=== PATIENT | male | born 1945 | race Caucasian/White ===

== ENCOUNTER 2017-12-23 11:52 | Inpatient (IN) | payer OTHER ==
[2017-12-23] VITALS (8 sets, daily range): BP systolic 104–136; BP diastolic 52–72
[~2017-12-23] VITALS: Ht 177.8 cm; Wt 92.8 kg
--- NOTE | ~2017-12-23 | EKG ---
[place] [address] [place] [address] ELECTROCARDIOGRAM REPORT Name: INGRID RANDALL Room #: 211-P ADM IN M.R.#: [id number] Admission: 12/23/17 Attend Phys: Sally Simons Discharge: Date of : 47 Report #: [id number] THIS REPORT FOR: //name// [facility] ED Test Date: 2017-12-23 Test Time: 12:48:10 Pat Name: INGRID RANDALL Department: Room: 211 Gender: M Presiding Steward: KIMBERLEE : 1945 Requested By: Regis Mcadams Order Number: [id number] MD: Mauro Hung Measurements Intervals [place] Rate: 96 P: 67 OK: 144 QRS: -55 QRSD: 148 T: 87 QT: 354 QTc: 448 Interpretive Statements Sinus rhythm RBBB and LAFB Baseline wander in lead(s) V2 No previous ECG available for comparison Electronically Signed On 12-23-2017 17:08:08 CDT by Mauro Hung [email or web address] <ELECTRONICALLY SIGNED> By: Mauro Hung MD, [facility] 12/23/17 1708 1248 1248 Mauro Hung MD, FACC /EPI
[2017-12-23 12:55] LABS: BASOPHILS 0.8 % (0.0-2.0); EOSINOPHILS 0.7 % (0.0-3.0)
[2017-12-23 12:58] LABS: ABSOLUTE NEUTROPHILS 9.4 thou/uL (1.4-8.2); LYMPHOCYTES 15.6 % (24.0-44.0); MCH 25.1 pg (26.0-34.0); MCV 78.4 fL (80.0-100.0); MONOCYTES 5.7 % (1.0-8.0); PLATELET COUNT 338 thou/uL (150-400); POLYS 77.2 % (36.0-66.0); RDW 21.9 % (10.5-14.5); WBC 12.2 thou/uL (4.0-11.0)
[2017-12-23 13:00] LABS: HEMATOCRIT 17.3 % (42.0-52.0); HEMOGLOBIN 5.5 gm/dL (14.0-18.0)
[2017-12-23] MEDS ORDERED: DIOVAN HCT 3201 EACH PO (13:02)
[2017-12-23] MEDS ORDERED: ZOCOR20 MG PO (13:02)
[2017-12-23] MEDS ORDERED: FLOMAX0.4 MG PO (13:03)
[2017-12-23 13:04] LABS: ANION GAP 8 mmol/L (7-16); BUN 72 mg/dL (7-18); CALCIUM 10.9 mg/dL (8.5-10.1); CHLORIDE 101 mmol/L (98-107); CO2 26 mmol/L (21-32); GLUCOSE 122 mg/dL (74-106); SODIUM 135 mmol/L (136-145)
[2017-12-23] MEDS ORDERED: OXYCODONE HCL 55 MG PO (13:04)
[2017-12-23] MEDS ORDERED: DOCUPRENE100 MG PO (13:04)
[2017-12-23] MEDS ORDERED: ZOFRAN ODT4 M1 PO (13:05)
[2017-12-23] MEDS ORDERED: VOLTAREN GEL 1100 G2 TOP (13:08)
[2017-12-23] MEDS ORDERED: CARVEDILOL3.125 MG PO (13:09)
[2017-12-23] MEDS ORDERED: XARELTO10 MG PO (13:09)
[2017-12-23] MEDS ORDERED: TYLENOL325 MG PO (13:10)
[2017-12-23] MEDS ORDERED: ST. JOSEPH ASPI81 MG PO (13:10)
[2017-12-23] MEDS ORDERED: PROSCAR 5MG TABL5 MG PO (13:11)
[2017-12-23] MEDS ORDERED: ACIDOPHILUS1 EAC2 PO (13:11)
[2017-12-23] MEDS ORDERED: CENTRUM SILVER1 EAC2 PO (13:11)
[2017-12-23] MEDS ORDERED: VITAMINC500 PO (13:12)
[2017-12-23 13:13] LABS: ALBUMIN 2.6 g/dL (3.4-5.0); SGOT 18 U/L (15-37); SGPT 24 U/L (30-65); TOTAL BILIRUBIN 0.2 mg/dL (<0.1-1.0); TOTAL PROTEIN 7.2 g/dL (6.4-8.2); TROPONIN-I < 0.04 ng/mL (<0.06)
[2017-12-23] MEDS ORDERED: CRANBERRY 6,001 EACH PO (13:16)
[2017-12-23] MEDS ORDERED: PURELAX510 GM PO (13:18)
[2017-12-23 14:31] LABS: OBSERVED RETIC COUNT 2.52 % (0.6-2.6)
[2017-12-23 14:36] LABS: % SATURATION 26 % (20-39); IRON 62 ug/dL (65-175); TIBC 240 ug/dL (250-450)
[2017-12-24] VITALS (9 sets, daily range): BP systolic 130–157; BP diastolic 59–91
[2017-12-24 00:18] LABS: WBC 9.7 thou/uL (4.0-11.0)
[2017-12-24 00:20] LABS: MCH 26.8 pg (26.0-34.0); MCHC 33.2 g/dL (28.0-37.0); MCV 80.5 fL (80.0-100.0); RBC 2.24 mil/uL (4.50-6.00); RDW 19.2 % (10.5-14.5)
[2017-12-24 09:58] LABS: HEMATOCRIT 24.3 % (42.0-52.0); HEMOGLOBIN 8.4 gm/dL (14.0-18.0)
[2017-12-25 04:18] LABS: PROTIME 10.3 Seconds (9.3-11.4)
[2017-12-25 04:33] LABS: HEMATOCRIT 22.3 % (42.0-52.0); HEMOGLOBIN 7.6 gm/dL (14.0-18.0)
[2017-12-25 04:35] LABS: ALBUMIN 2.3 g/dL (3.4-5.0)
[2017-12-25 05:31] VITALS: BP 142/74
[2017-12-25 07:49] VITALS: BP 147/84
[2017-12-25 10:43] LABS: CALCIUM 10.2 mg/dL (8.5-10.1); CREATININE 1.6 mg/dL (0.7-1.3); POTASSIUM 4.4 mmol/L (3.5-5.1)
[2017-12-25 15:45] VITALS: BP 134/63
[2017-12-25 19:59] VITALS: BP 118/60
[2017-12-26 07:33] LABS: HEMATOCRIT 21.9 % (42.0-52.0); HEMOGLOBIN 7.5 gm/dL (14.0-18.0); MCHC 34.5 g/dL (28.0-37.0); RBC 2.6 mil/uL (4.50-6.00); RDW 18.1 % (10.5-14.5); WBC 7.1 thou/uL (4.0-11.0)
[2017-12-26 07:46] LABS: CALCIUM 9.9 mg/dL (8.5-10.1); CREATININE 1.7 mg/dL (0.7-1.3); POTASSIUM 4.1 mmol/L (3.5-5.1)
[2017-12-26 08:15] VITALS: BP 152/77
[2017-12-26 10:07] VITALS: BP 152/77
[2017-12-26 20:00] VITALS: BP 137/72
[2017-12-27 07:40] LABS: HEMATOCRIT 22.7 % (42.0-52.0); HEMOGLOBIN 7.7 gm/dL (14.0-18.0); MCH 28.8 pg (26.0-34.0); MCHC 33.8 g/dL (28.0-37.0); MCV 85.3 fL (80.0-100.0); RBC 2.66 mil/uL (4.50-6.00); RDW 18.1 % (10.5-14.5); WBC 9.2 thou/uL (4.0-11.0)
[2017-12-27 08:07] VITALS: BP 172/82
[2017-12-27 10:17] VITALS: BP 156/77
== END 2017-12-27 11:10 | disposition home health service (06) | DRG 377 ==
LOC: ER 11:52 → EROBS 13:25 → 2N 13:25 → EROBS 14:30 → 2N 14:30 → SICU 12-25 16:34
PROVIDERS: Anesthesiology; Emergency Medicine; Hospitalist; Internal Medicine Gastroenterology
DX: K92.2 Gastrointestinal hemorrhage, unspecified (principal); E43 Unspecified severe protein-calorie malnutrition; D62 Acute posthemorrhagic anemia; Z96.642 Presence of left artificial hip joint; Z96.652 Presence of left artificial knee joint; R33.9 Retention of urine, unspecified; K21.9 Gastro-esophageal reflux disease without esophagitis; D50.9 Iron deficiency anemia, unspecified; K64.8 Other hemorrhoids; L53.8 Other specified erythematous conditions; K29.81 Duodenitis with bleeding; N18.9 Chronic kidney disease, unspecified; Z68.29 Body mass index [BMI] 29.0-29.9, adult; Z87.891 Personal history of nicotine dependence; Z79.899 Other long term (current) drug therapy
CPT/HCPCS: 10081; 15002; 62110; 62900; 70005

== ENCOUNTER → 2019-10-14 | Outpatient (CLI) | payer OTHER ==
[~2019-10-14] MED LIST: ACIDOPHILUS1 EAC2 PO; ALL DAY ALLERGY10 M3 PO; AMLODIPINE BESY10 MG PO; BUPROPION XL300 MG PO; CARVEDILOL3.125 MG PO; CENTRUM SILVER1 EAC2 PO; CRANBERRY 6,001 EACH PO; DIOVAN HCT 3201 EACH PO; DOCUPRENE100 MG PO; EDARBI80 MG PO; FLOMAX0.4 MG PO; FLUOXETINE HCL20 M1 PO; INDERAL LA60 MG PO; OXYCODONE HCL 55 MG PO; PLAQUENIL200 MG PO; PROAIR HFA8.5 GM INH; PROSCAR 5MG TABL5 MG PO; PURELAX PO; PURELAX510 GM PO; SIMPONI AR50 MG/4 ML IV; SPIRONOLACTONE25 MG PO; ST. JOSEPH ASPI81 MG PO; SYMBICORT160 MCG/4. INH; TEMAZEPAM30 MG PO; TYLENOL325 MG PO; VITAMINC500 PO; VOLTAREN GEL 1100 G2 TOP; XARELTO10 MG PO; ZOCOR20 MG PO; ZOFRAN ODT4 M1 PO; ZOLPIDEM TARTRA10 MG PO; [UNRECOGNIZED DRUG - OTHER] IV
== END ==
LOC: SJCVC 10:52 → SJCVCIMAG 10:52
DX: I21.3 ST elevation (STEMI) myocardial infarction of unspecified site (principal); I25.10 Atherosclerotic heart disease of native coronary artery without angina pectoris; I12.9 Hypertensive chronic kidney disease with stage 1 through stage 4 chronic kidney disease, or unspecified chronic kidney disease; N18.3 Chronic kidney disease, stage 3 (moderate); E78.00 Pure hypercholesterolemia, unspecified; I71.9 Aortic aneurysm of unspecified site, without rupture; I71.2 Thoracic aortic aneurysm, without rupture; I45.10 Unspecified right bundle-branch block

== ENCOUNTER → 2019-11-04 | Outpatient (CLI) | payer OTHER | LOC: SJCVCIMAG 11:02 | DX: I45.2 Bifascicular block (principal); I25.10 Atherosclerotic heart disease of native coronary artery without angina pectoris; I71.2 Thoracic aortic aneurysm, without rupture; I12.9 Hypertensive chronic kidney disease with stage 1 through stage 4 chronic kidney disease, or unspecified chronic kidney disease; N18.9 Chronic kidney disease, unspecified; E78.00 Pure hypercholesterolemia, unspecified; Z87.891 Personal history of nicotine dependence; Z79.899 Other long term (current) drug therapy ==

== ENCOUNTER → 2019-11-04 | Outpatient (CLI) | payer OTHER ==
[~2019-11-04] MED LIST changes: -ALL DAY ALLERGY10 M3 PO; -AMLODIPINE BESY10 MG PO; -BUPROPION XL300 MG PO; -EDARBI80 MG PO; -FLUOXETINE HCL20 M1 PO; -INDERAL LA60 MG PO; -PLAQUENIL200 MG PO; -PROAIR HFA8.5 GM INH; -PURELAX PO; -SIMPONI AR50 MG/4 ML IV; -SPIRONOLACTONE25 MG PO; -SYMBICORT160 MCG/4. INH; -TEMAZEPAM30 MG PO; -ZOLPIDEM TARTRA10 MG PO; -[UNRECOGNIZED DRUG - OTHER] IV
[2019-11-04 10:30] LABS: CALCIUM 10.4 mg/dL (8.5-10.1); CREATININE 1.6 mg/dL (0.7-1.3); POTASSIUM 4.4 mmol/L (3.5-5.1)
== END ==
LOC: CAT 09:42
PROVIDERS: Internal Medicine Cardiovascular Disease
DX: I71.2 Thoracic aortic aneurysm, without rupture (principal); E04.2 Nontoxic multinodular goiter; J43.9 Emphysema, unspecified; M47.814 Spondylosis without myelopathy or radiculopathy, thoracic region

== ENCOUNTER → 2019-11-12 | Outpatient (CLI) | payer OTHER ==
[~2019-11-12] VITALS: Ht 177.8 cm; Wt 97.5 kg
[~2019-11-12] MED LIST changes: +ALL DAY ALLERGY10 M3 PO; +AMLODIPINE BESY10 MG PO; +BUPROPION XL300 MG PO; +EDARBI80 MG PO; +FLUOXETINE HCL20 M1 PO; +INDERAL LA60 MG PO; +PLAQUENIL200 MG PO; +PROAIR HFA8.5 GM INH; +PURELAX PO; +SIMPONI AR50 MG/4 ML IV; +SPIRONOLACTONE25 MG PO; +SYMBICORT160 MCG/4. INH; +TEMAZEPAM30 MG PO; +ZOLPIDEM TARTRA10 MG PO; +[UNRECOGNIZED DRUG - OTHER] IV
[2019-11-12 11:39] LABS: URINE BILIRUBIN NEGATIVE (Negative); URINE BLOOD NEGATIVE (Negative); URINE CLARITY CLEAR; URINE COLOR YELLOW; URINE GLUCOSE-RANDOM* NEGATIVE (Negative); URINE KETONES NEGATIVE (Negative); URINE LEUKOCYTES-REFLEX NEGATIVE (Negative); URINE NITRITE-REFLEX NEGATIVE (Negative); URINE PROTEIN (DIPSTICK) NEGATIVE (Negative); URINE SPECIFIC GRAVITY >= 1.030 (1.005-1.035); URINE UROBILINOGEN 0.2 E.U./dl (0.2-1.0)
[2019-11-12 11:41] LABS: ABSOLUTE NEUTROPHILS 6.7 thou/uL (1.4-8.2); BASOPHILS 0.6 % (0.0-2.0); EOSINOPHILS 1.8 % (0.0-3.0); HEMOGLOBIN 10.9 gm/dL (14.0-18.0); LYMPHOCYTES 19.4 % (24.0-44.0); MCH 25.9 pg (26.0-34.0); MCV 83.4 fL (80.0-100.0); MONOCYTES 10.4 % (1.0-8.0); PLATELET COUNT 291 thou/uL (150-400); POLYS 67.8 % (36.0-66.0); RDW 15.2 % (10.5-14.5); WBC 9.9 thou/uL (4.0-11.0)
[2019-11-12 11:54] LABS: CALCIUM 9.9 mg/dL (8.5-10.1); CREATININE 1.7 mg/dL (0.7-1.3); POTASSIUM 4.6 mmol/L (3.5-5.1); TOTAL BILIRUBIN 0.2 mg/dL (<0.1-1.0); TOTAL PROTEIN 7.5 g/dL (6.4-8.2)
[2019-11-12 11:57] LABS: APTT 31.7 Seconds (24.5-32.8); PROTIME 10.3 Seconds (9.3-11.4)
--- NOTE | 2019-11-15 08:02 | EKG ---
[facility] [address] [place] [address] ELECTROCARDIOGRAM REPORT Name: INGRID RANDALL Room #: PRE IN M.R.#: [id number] Admission: Attend Phys: Dakota Gtz MD Discharge: Date of : 47 Report #: [id number] THIS REPORT FOR: cc: Momo Jose MD, Michael S. MD Lundgren,Mauro Prince MD [facility] ~ THIS REPORT FOR: //name// [facility] Test Date: 2019-11-12 Test Time: 11:22:24 Pat Name: INGRID RANDALL Department: Room: Gender: M Bomb Loader: marika : 1945 Requested By: Dakota Gtz Order Number: [id number] MD: Mauro Hung Measurements Intervals [place] Rate: 55 P: 80 ID: 146 QRS: -66 QRSD: 171 T: -6 QT: 495 QTc: 474 Interpretive Statements Sinus rhythm RBBB and LAFB Compared to ECG 12/23/2017 12:48:10 No significant changes Electronically Signed On 11-15-2019 8:01:05 CDT by Mauro Hung [email or web address] <ELECTRONICALLY SIGNED> By: Mauro Hung MD, [facility] 11/15/19 0801 112 21 Mauro Hung MD, [facility] /EPI
== END ==
LOC: PAC 10:41 → TBA 11-19 06:49 → PRE 11-19 06:49 → EDSTATUS 11-19 13:57 → PRE 11-26 10:23
PROVIDERS: Surgery Vascular Surgery
DX: Z01.818 Encounter for other preprocedural examination (principal); I71.2 Thoracic aortic aneurysm, without rupture
CPT/HCPCS: 50010

== ENCOUNTER 2020-01-13 18:57 | Emergency (ER) | payer OTHER ==
[~2020-01-13] VITALS: Ht 177.8 cm; Wt 93.0 kg
[2020-01-13 20:16] LABS: ABSOLUTE NEUTROPHILS 11.4 thou/uL (1.4-8.2); BASOPHILS 0.5 % (0.0-2.0); EOSINOPHILS 0.4 % (0.0-3.0); HEMATOCRIT 32.8 % (42.0-52.0); HEMOGLOBIN 10.5 gm/dL (14.0-18.0); LYMPHOCYTES 10.5 % (24.0-44.0); MCHC 32.1 g/dL (28.0-37.0); MCV 81.2 fL (80.0-100.0); MONOCYTES 9.5 % (1.0-8.0); PLATELET COUNT 300 thou/uL (150-400); POLYS 79.1 % (36.0-66.0); RBC 4.03 mil/uL (4.50-6.00); RDW 16.8 % (10.5-14.5); WBC 14.4 thou/uL (4.0-11.0)
[2020-01-13 20:27] LABS: ANION GAP 10 mmol/L (7-16); BUN 44 mg/dL (7-18); CALCIUM 9.9 mg/dL (8.5-10.1); CHLORIDE 104 mmol/L (98-107); CO2 21 mmol/L (21-32); GLUCOSE 101 mg/dL (74-106); POTASSIUM 5.4 mmol/L (3.5-5.1); SODIUM 135 mmol/L (136-145)
[2020-01-13 20:38] LABS: ALBUMIN 2.9 g/dL (3.4-5.0); SGOT 13 U/L (15-37); SGPT 21 U/L (30-65); TOTAL BILIRUBIN 0.3 mg/dL (<0.1-1.0); TOTAL PROTEIN 8.1 g/dL (6.4-8.2); TROPONIN-I <0.06 ng/mL (<0.06)
[2020-01-13 20:40] LABS: APTT 31.7 Seconds (24.5-32.8); PROTIME 10.5 Seconds (9.3-11.4)
[2020-01-13 20:43] LABS: DIRECT BILIRUBIN < 0.1 mg/dL (<0.1-0.2)
[2020-01-13] MEDS ORDERED: FLORANEX TABLE1 EACH PO (21:18)
[2020-01-13] MEDS ORDERED: NORVASC 2.5 MG2.5 M1 PO (21:18)
[2020-01-13 21:19] LABS: URINE BILIRUBIN NEGATIVE (Negative); URINE BLOOD NEGATIVE (Negative); URINE CLARITY CLEAR; URINE COLOR YELLOW; URINE GLUCOSE-RANDOM* NEGATIVE (Negative); URINE KETONES NEGATIVE (Negative); URINE LEUKOCYTES-REFLEX TRACE (Negative); URINE NITRITE-REFLEX NEGATIVE (Negative); URINE PROTEIN (DIPSTICK) NEGATIVE (Negative); URINE SPECIFIC GRAVITY >= 1.030 (1.005-1.035); URINE UROBILINOGEN 0.2 E.U./dl (0.2-1.0)
[2020-01-14 00:21] VITALS: BP 154/71
--- NOTE | 2020-01-14 08:22 | EKG ---
[facility] [place] [address] ELECTROCARDIOGRAM REPORT Name: INGRID RANDALL Room #: DEP M.R.#: [id number] Admission: 01/13/20 Attend Phys: Discharge: 01/14/20 Date of : 47 Report #: [id number] THIS REPORT FOR: cc: Momo Jose MD, Michael S. MD Couchonnal,Augusto Hernández MD ~ THIS REPORT FOR: //name// [facility] ED Test Date: 2020-01-13 Test Time: 20:09:09 Pat Name: INGRID RANDALL Department: Room: Gender: Wardrobe Technician: [email or web address] : 1945 Requested By: Mayra Morrison Order Number: [id number] : Augusto Owens Measurements Intervals [place] Rate: 82 P: 83 DE: 152 QRS: -68 QRSD: 166 T: 80 QT: 400 QTc: 468 Interpretive Statements Sinus rhythm Consider left atrial enlargement RBBB and LAFB Baseline wander in lead(s) V1,V2 Compared to ECG 11/12/2019 11:22:24 No significant changes Electronically Signed On 01-14-2020 8:20:49 CDT by Augsuto Owens [email or web address] <ELECTRONICALLY SIGNED> By: Augusto Owens MD 01/14/20 0820 08 08 Augusto Owens MD /EPI
== END 2020-01-14 00:26 | disposition home or self-care (01) ==
LOC: ER 18:57
PROVIDERS: Emergency Medicine
DX: R53.1 Weakness (principal); R06.02 Shortness of breath; J44.9 Chronic obstructive pulmonary disease, unspecified; E78.00 Pure hypercholesterolemia, unspecified; M06.9 Rheumatoid arthritis, unspecified; Z79.899 Other long term (current) drug therapy; Z96.652 Presence of left artificial knee joint; Z96.642 Presence of left artificial hip joint; Z87.891 Personal history of nicotine dependence

== ENCOUNTER 2020-02-16 09:55 | Inpatient (IN) | payer OTHER ==
[2020-02-07 14:29] LABS: URINE BILIRUBIN NEGATIVE (Negative); URINE BLOOD NEGATIVE (Negative); URINE CLARITY CLEAR; URINE COLOR YELLOW; URINE GLUCOSE-RANDOM* NEGATIVE (Negative); URINE KETONES NEGATIVE (Negative); URINE LEUKOCYTES-REFLEX TRACE (Negative); URINE NITRITE-REFLEX NEGATIVE (Negative); URINE PROTEIN (DIPSTICK) NEGATIVE (Negative); URINE SPECIFIC GRAVITY >= 1.030 (1.005-1.035); URINE UROBILINOGEN 0.2 E.U./dl (0.2-1.0)
[2020-02-07 14:31] LABS: HEMATOCRIT 33.5 % (42.0-52.0); HEMOGLOBIN 10.5 gm/dL (14.0-18.0); MCH 26.3 pg (26.0-34.0); MCHC 31.5 g/dL (28.0-37.0); MCV 83.5 fL (80.0-100.0); PLATELET COUNT 246 thou/uL (150-400); RBC 4.01 mil/uL (4.50-6.00); RDW 17.4 % (10.5-14.5); WBC 12.4 thou/uL (4.0-11.0)
[2020-02-07 14:45] LABS: ALBUMIN 3.1 g/dL (3.4-5.0); CALCIUM 9.4 mg/dL (8.5-10.1); CREATININE 2.2 mg/dL (0.7-1.3); TOTAL BILIRUBIN 0.2 mg/dL (0.2-1.0)
[2020-02-07 15:08] LABS: ABSOLUTE NEUTROPHILS 8.4 thou/uL (1.4-8.2)
[2020-02-07 15:09] LABS: ANISOCYTOSIS 1+; APTT 26.8 Seconds (24.5-32.8); PROTIME 9.6 Seconds (9.3-11.4)
--- NOTE | 2020-02-08 08:45 | EKG ---
[facility] [address] [place] [address] ELECTROCARDIOGRAM REPORT Name: INGRID RANDALL Room #: PRE IN M.R.#: [id number] Admission: Attend Phys: Dakota Gtz MD Discharge: Date of : 47 Report #: [id number] THIS REPORT FOR: cc: Momo Jose MD, Michael S. MD Lundgren,Mauro Prince MD [facility] ~ THIS REPORT FOR: //name// [facility] Test Date: 2020-02-07 Test Time: 13:13:59 Pat Name: INGRID RANDALL Department: Room: Gender: Ticket Sorter: Betty WILLIS : 1945 Requested By: Dakota Gtz Order Number: [id number] MD: Mauro Hung Measurements Intervals [place] Rate: 58 P: 60 [place]: 158 QRS: -65 QRSD: 163 T: 8 QT: 459 QTc: 451 Interpretive Statements Sinus rhythm RBBB and LAFB Compared to ECG 01/13/2020 20:09:09 No significant changes Electronically Signed On 02-08-2020 8:44:14 CDT by Mauro Hung [email or web address] <ELECTRONICALLY SIGNED> By: Mauro Hung MD, [facility] 02/08/20 0844 1313 1313 Mauro Hung MD, [facility] /EPI
[~2020-02-16] VITALS: Ht 177.8 cm; Wt 93.0 kg
[~2020-02-16 09:55] MED LIST changes: +BENICAR40 MG PO; +FLORANEX TABLE1 EACH PO; +LEFLUNOMIDE 1010 MG PO; +NORVASC 2.5 MG2.5 M1 PO; +PREDNISONE 5 MG5 M1 PO
[2020-02-16 11:15] VITALS: BP 144/59
--- NOTE | 2020-02-16 16:15 | NUR ---
RECIEVED PT FROM OR ON ICU BED. PLACED ON MONITOR. CARDENE GOING AT 6CC/HR. READJUSTED TO 15MG/HR. DR. ENRIQUEZ AWARE. LES SLIGHTLY COOL VALENZUELA. DOPPLER PULSES. NO SCDS. PT ALERT AND ORIENTED AND DENIES PAIN. R GROIN STABLE.
[2020-02-17] VITALS (7 sets, daily range): BP systolic 105–146; BP diastolic 40–51
[2020-02-17 05:58] LABS: CALCIUM 8.9 mg/dL (8.5-10.1); CREATININE 1.7 mg/dL (0.7-1.3); POTASSIUM 4.7 mmol/L (3.5-5.1)
--- NOTE | 2020-02-17 11:56 | NUR ---
ASSUMED CARE @ 0700 02/17/20, PT ASSESSMENTS AND VSS COMPLETE PER ICU PROTOCOL. PT ENCOUNTERED ON CARDENE GTT, SBP TO BE TITRATED TO KEEP BELOW 150. MATEUSZ ZAZUETA @ BEDSIDE, ORDERS RECIEVED AND EXECUTED. ART LINE NOT PRODUCING NUMBERS @ 1010, ALMAS CALLED AND INFORMED, ORDERS GIVEN TO DC ART LINE, ART LINE D'CD, PRESSURE HELD FOR 10MINS, NO COMPLICATIONS NOTED. TAMIKO ALSO DC'D PER ORDERS NO COMPLICATIONS NOTED. PT HAS NOT VOIDED YET. REPORT GIVEN TO HARJINDER BARFIELD @ 0702.
--- NOTE | 2020-02-17 15:19 | NUR ---
RN ASSUMED CARE AT 1100. PATIENT IN CHAIR RESTING. NO COMPLAINTS AT THIS TIME. PATIENT PREPARING FOR DISCHARGE. ORDERS RECIEVED. PATIENT DISCHARGED HOME AT 1445.
--- NOTE | 2020-02-25 08:59 | O ---
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 OPERATION: Stent graft implant, descending thoracic aorta and intraoperative aortogram. SURGEON: Dr. Dakota Gtz and Dr. Zuhair Chin. CUTTING TOOL SHARPENER: CARLITA Sierra. ANESTHESIA: General. INDICATIONS: The patient is a 74-year-old with penetrating ulcer that is essentially a saccular aneurysm in the upper descending thoracic aorta. This was a relatively discrete area of abnormality and we believe that stent graft implant would reline the aorta and protect the patient from any ravages of it. FINDINGS AND TECHNIQUE: After general anesthesia was established, an incision was made in the right groin to expose the common femoral artery. A 10,000 units of heparin were given. The right common femoral artery was entered with the Amplatz needle and the guidewire was passed and a 6-Libyan sheath was placed. Through the sheath and over the guidewire, an exchanged catheter was passed and then the Lunderquist wire was placed into the aorta and passed around the arch. Over the Lunderquist wire, the 22-Libyan sheath was placed through a femoral cutdown. Through the sheath, the 34 x 10 CTAG Trinity stent graft was placed. A separate guidewire was passed next to the stent graft and over it, a pigtail catheter was placed and the pigtail was passed into the transverse aorta and an [facility] [address] [place] [address] OPERATIVE REPORT Name: INGRID RANDALL Room #: 250-P [facility] IN M.R.#: [id number] Admission: 02/16/20 Attend Phys: Dakota Gtz MD Discharge: 02/17/20 Date of : 47 Report #: [id number] arteriogram was taken. This allowed us to identify the saccular aneurysm and placed the graft properly. The graft was deployed and then the pigtail catheter was brought back distal to the stent graft over a wire and then passed through the graft and a final arteriogram was taken. This showed good position of the graft and no evidence of endoleak. The dilator was replaced over the guidewire and the large sheath was removed as well as the pigtail catheter. The femoral cutdown was closed with interrupted Prolene and flow was reestablished. Protamine was given to reverse the heparin. Hemostasis was ascertained and the wound was closed in layers. The patient was taken to the recovery area in good condition having tolerated the procedure well. All counts reported as correct. <ELECTRONICALLY SIGNED> By: Dakota Gtz MD 02/25/20 0859 06 24 Dakota Gtz MD /nt
== END 2020-02-17 14:45 | disposition home or self-care (01) | DRG 221 ==
LOC: ICU 09:55 → TBA 09:55 → PRE 10:26 → ICU 16:08
PROVIDERS: Physician Assistant; ADMIT Surgery Vascular Surgery; ATTEND Surgery Vascular Surgery
DX: I71.2 Thoracic aortic aneurysm, without rupture (principal); Z20.828 Contact with and (suspected) exposure to other viral communicable diseases; Z96.649 Presence of unspecified artificial hip joint; E78.5 Hyperlipidemia, unspecified; I12.9 Hypertensive chronic kidney disease with stage 1 through stage 4 chronic kidney disease, or unspecified chronic kidney disease; N18.9 Chronic kidney disease, unspecified; J43.9 Emphysema, unspecified; M06.9 Rheumatoid arthritis, unspecified; Z85.46 Personal history of malignant neoplasm of prostate; Z79.899 Other long term (current) drug therapy
CPT/HCPCS: 10078; 47375; 48888; 50010; 50101; 50386; 50455; 52287; 54118; 56524; 56526; 56531; 56668; 56760; 57093; 58102; 58103; 62110; 62900; 65020; 65040; 70005